=== PATIENT | female | born 1970 | race African-American/Black ===

== ENCOUNTER 2020-08-18 17:50 | Emergency (ER) | payer BC ==
[~2020-08-18] VITALS: Ht 160 cm; Wt 105.5 kg
--- NOTE | 2020-08-18 18:49 | EKG ---
[facility] ED [facility] [address] [place] [id number] Test Date: 2020-08-18 Test Time: 18:04:59 Pat Name: STERLING GUTIERREZ Department: Room: Gender: F Body Team Member: SHENA : 1970 Requested By: CLAY ANN Order Number: [id number] Reading MD: Measurements Intervals [place] Rate: 89 P: 13 GA: 126 QRS: 33 QRSD: 72 T: 63 QT: 374 QTc: 456 Interpretive Statements SINUS RHYTHM T ABNORMALITY IN HIGH LATERAL LEADS ABNORMAL ECG RI6.02 No previous ECG available for comparison
--- NOTE | 2020-08-18 18:54 | PHYS DOC ---
Past History Past Medical History: Other Additional Past Medical Histor: sjogrens, celiac, arthritis, alopecia Past Surgical History: Tubal ligation Additional Past Surgical Histo: hand surgery Alcohol Use: Occasionally Adult General Chief Complaint Chief Complaint: MULTIPLE COMPLAINTS HPI HPI Patient is a 50-year-old female with a past medical history significant for COPD and currently being treated for E. coli positive urinary tract infection with Macrobid who presents to the emergency department with a chief complaint of cough and concerned that Macrobid is not working. States that she was diagnosed just over a week ago but did not start taking her Macrobid until yesterday for various reasons. States that a couple hours after taking the Macrobid she felt short of breath and started coughing. States she has had a mild nonproductive cough since last night. Denies any recent travel, traumas, chest pain, abdominal pain, nausea, vomiting, dysuria, hematuria, diarrhea. States she thinks her urine is still little dark and has an odor to it but has no dysuria or hematuria. States she is a [id number] smoker. Review of Systems Review of Systems Review of systems otherwise unremarkable except noted in HPI Allergies Allergies Allergies Coded Allergies Type Severity Reaction Last Updated Verified nitrofurantoin Allergy Severe shortness 08/18/20 Yes meloxicam Allergy Unknown 08/18/20 Yes Physical Exam Physical Exam Constitutional: Well developed, well nourished, no acute distress, non-toxic appearance. [] HENT: Normocephalic, atraumatic, bilateral external ears normal, oropharynx moist, no oral exudates, nose normal. [] Eyes: PERRLA, EOMI, conjunctiva normal, no discharge. [] Neck: Normal range of motion, no tenderness, supple, no stridor. [] Cardiovascular:Heart rate regular rhythm, no murmur [] Lungs & Thorax: Mild bilateral global rhonchi Abdomen: Bowel sounds normal, soft, no tenderness, no masses, no pulsatile masses. [] Skin: Warm, dry, no erythema, no rash. [] Back: No tenderness, no CVA tenderness. [] Extremities: No tenderness, no cyanosis, no clubbing, ROM intact, no edema. [] Neurologic: Alert and oriented X 3, normal motor function, normal sensory function, no focal deficits noted. [] Psychologic: Affect normal, judgement normal, mood normal. [] Current Patient Data Vital Signs Vital Signs Date Time Temp Pulse Resp B/P (MAP) Pulse Ox O2 Delivery O2 Flow Rate FiO2 08/18/20 17:55 99.0 86 17 145/82 (103) 99 Room Air EKG EKG EKG with a rate of 89, QRS of 72, QTc of 456, no STEMI [] Radiology/Procedures Radiology/Procedures [] Exam: Chest one view INDICATION: Cough TECHNIQUE: Frontal view of the chest Comparisons: None FINDINGS: The cardiomediastinal silhouette and pulmonary vessels are within normal limits. The lung and pleural spaces are clear. IMPRESSION: No acute cardiopulmonary process. Electronically signed by: Faiza Sandoval MD (08/18/2020 7:02 PM) [facility] Heart Score C/O Chest Pain: No Risk Factors: Risk Factors: DM, Current or recent (<one month) smoker, HTN, HLP, family history of CAD, obesity. Risk Scores: Risk Factors: DM, Current or recent (<one month) smoker, HTN, HLP, family history of CAD, obesity. Course & Med Decision Making Course & Med Decision Making Patient is a 50-year-old female presents with a current diagnosis of urinary tract infection who just started taking her Macrobid last night and now has feelings of shortness of breath and dry cough Vital signs not concerning. Physical exam noted above. EKG noted above and not concerning. Chest x-ray not concerning. Patient started on Keflex in the ED for her E. coli positive urinary tract infection advised to stop Macrobid as it could be causing adverse effects. Advised to call primary care physician in the morning to update on ED visit and changes, as well as set up a follow-up appointment. Gave return precautions to the ED. Patient grateful, verbalized understanding and agreed with plan of discharge. [] Dragon Disclaimer Dragon Disclaimer This electronic medical record was generated, in whole or in part, using a voice recognition dictation system. Departure Departure: Impression: Primary Impression: Urinary tract infection Additional Impression: Adverse drug reaction Disposition: HOME / SELF CARE / HOMELESS Condition: GOOD Referrals: PCP,NO (PCP) LISANDRA SMITH MD Patient Instructions: Cough, Adult, Urinary Tract Infection Additional Instructions: Thank you for coming into the emergency department tonight and allowing us to take care of you. As discussed we will change your urinary tract infection from your Macrobid to cephalexin given a possible adverse medication reaction. You were given the first dose in the emergency department. Please take all antibiotics as prescribed and until they are gone. Please call your primary care physician first thing in the morning to update on ED visit and set up a follow-up visit. Please come back to the emergency department immediately with new or concerning symptoms as discussed. Problem Qualifiers CLAY ANN MD Aug 18, 2020 18:54
[2020-08-18 19:04] LABS: BILIRUBIN,URINE NEG (NEG); CLARITY,URINE HAZY; COLOR,URINE AMBER; GLUCOSE,URINE NEG (NEG); NITRITE,URINE NEG (NEG); RBC,URINE RARE /HPF (0-2)
[2020-08-18 19:05] LABS: BACTERIA,URINE FEW /HPF (0-FEW); SQUAMOUS EPITHELIAL CELL,UR MOD /LPF
--- NOTE | 2020-08-18 19:05 | RAD ---
Exam: Chest one view INDICATION: Cough TECHNIQUE: Frontal view of the chest Comparisons: None FINDINGS: The cardiomediastinal silhouette and pulmonary vessels are within normal limits. The lung and pleural spaces are clear. IMPRESSION: No acute cardiopulmonary process. Electronically signed by: Faiza Sandoval MD (08/18/2020 7:02 PM) [facility]
[2020-08-18] MEDS ORDERED: CEPH500C PO (19:44)
[2020-08-18] MEDS ORDERED: CEPHALEXIN 250 MG CAPSULE PO ONE (19:45)
[2020-08-18 19:51] VITALS: BP 133/84
== END 2020-08-18 20:00 | disposition home or self-care (01) ==
LOC: ER 17:50
DX: N39.0 Urinary tract infection, site not specified (principal); T37.8X5A Adverse effect of other specified systemic anti-infectives and antiparasitics, initial encounter; R05 Cough; M19.90 Unspecified osteoarthritis, unspecified site; Z98.51 Tubal ligation status; Z88.8 Allergy status to other drugs, medicaments and biological substances; Y92.89 Other specified places as the place of occurrence of the external cause
CPT/HCPCS: 71045; 81001; 87086; 93005; 99285